=== PATIENT | female | born 1970 | race Caucasian/White ===

== ENCOUNTER 2023-06-28 09:53 | Emergency (ER) | payer OTHER ==
[~2023-06-28] VITALS: Ht 170.2 cm; Wt 80.3 kg
[2023-06-28] MEDS ORDERED: ONDANSETRON ODT 4 MG TAB.RAPDIS SL ONE (10:30)
[2023-06-28] MEDS ORDERED: KETOROLAC TROMETHAMINE 30 MG INJ IM ONE (10:30)
[2023-06-28] MEDS ORDERED: ONDANSETRON ODT 4 MG TAB.RAPDIS ONE (10:42)
[2023-06-28] MEDS ORDERED: KETOROLAC TROMETHAMINE 30 MG INJ ONE (10:51)
[2023-06-28 11:29] VITALS: BP 107/55; O2SAT 95
== END 2023-06-28 11:27 | disposition home or self-care (01) ==
LOC: ER 09:53
DX: M54.50 Low back pain, unspecified (principal); Z88.8 Allergy status to other drugs, medicaments and biological substances; Z91.048 Other nonmedicinal substance allergy status
CPT/HCPCS: 99283; 96372; J1885; A4663; Q0162

== ENCOUNTER 2024-03-26 03:38 | Emergency (ER) | payer OTHER ==
[~2024-03-26] VITALS: Ht 167.6 cm; Wt 82.2 kg
[2024-03-26] MEDS: FAMOTIDINE. 20 MG/2 ML VIAL IV ONE (04:15)
[2024-03-26] MEDS: ONDANSETRON 4 MG/2 ML VIAL IV ONE ×2 (04:15→07:05)
[2024-03-26] MEDS: IV NORMAL SALINE 1000 ML BAG IV ONE (04:30)
[2024-03-26] MEDS ORDERED: KETOROLAC TROMETHAMINE 15 MG INJ IVP ONE (05:00)
[2024-03-26] MEDS ORDERED: MORPHINE SULFATE 4 MG/1 ML DISP.SYRIN IV ONE (05:00)
[2024-03-26] MEDS ORDERED: KETOROLAC TROMETHAMINE 15 MG INJ ONE (05:04)
[2024-03-26] MEDS: KETOROLAC TROMETHAMINE 15 MG INJ IVP ONE (05:11)
[2024-03-26 05:19] LABS: BASOPHILS % (AUTO) 0.2 % (0.0-2.0); HEMATOCRIT 25.1 % (31.2-41.9); HEMOGLOBIN 8.7 g/dL (10.9-14.3); LYMPHOCYTES # (AUTO) 1.5 K/uL (0.8-4.8); LYMPHOCYTES % (AUTO) 12.9 % (20.5-51.5); MEAN CORPUSCULAR HEMOGLOBIN 29.7 uug (24.7-32.8); MEAN CORPUSCULAR HGB CONC 35 g/dL (32.3-35.6); MEAN CORPUSCULAR VOLUME 85.6 fL (75.5-95.3); MONOCYTES # (AUTO) 0.4 K/uL (0.1-1.30); MONOCYTES % (AUTO) 3.7 % (0.0-11.0); NEUTROPHILS # (AUTO) 9.4 K/uL (1.8-8.9); NEUTROPHILS % (AUTO) 83.2 % (38.5-71.5); PLATELET COUNT (AUTO) 354 K/uL (179-408); RED BLOOD CELL COUNT(AUTO) 2.94 MIL/uL (3.63-4.92); RED CELL DISTRIBUTION WIDTH 15.6 % (12.3-17.7); WHITE BLOOD COUNT (AUTO) 11.3 K/uL (3.8-11.8)
[2024-03-26 05:32] LABS: ALBUMIN 3.5 g/dL (3.4-5.0); BILIRUBIN,DIRECT 0.1 mg/dL (0.0-0.2); BILIRUBIN,TOTAL 0.6 mg/dL (0.2-1.0); CREATININE 1.9 mg/dL (0.6-1.3); POTASSIUM 3.1 mmol/L (3.5-5.1); TOTAL PROTEIN, SERUM 6.3 g/dL (6.4-8.2)
[2024-03-26 05:36] LABS: LACTIC ACID 3.4 mmol/L (0.4-2.0)
[2024-03-26 05:39] LABS: DIFFERENTIAL COMMENT 1
[2024-03-26 05:45] VITALS: O2SAT 99
[2024-03-26] MEDS: IV NORMAL SALINE 500 ML IV ONE (05:45)
[2024-03-26] MEDS: FENTANYL CITRATE 100 MCG/2 ML AMPUL IV ONE ×3 (05:45→17:05)
[2024-03-26] MEDS ORDERED: FENTANYL CITRATE 100 MCG/2 ML AMPUL ONE ×3 (05:49→17:05)
[2024-03-26] MEDS: IV NS 1000 ML 1,000 ML IV ONE (06:10)
[2024-03-26] MEDS ORDERED: [UNRECOGNIZED DRUG - OTHER] PO (06:12)
[2024-03-26] MEDS ORDERED: SUMA100T16 PO (06:12)
[2024-03-26] MEDS ORDERED: VENL150C58 PO (06:12)
[2024-03-26] MEDS ORDERED: MIDO2.5T PO (06:12)
[2024-03-26] MEDS ORDERED: BREX1TAB PO (06:12)
[2024-03-26] MEDS ORDERED: QUET50TA PO (06:12)
[2024-03-26] MEDS ORDERED: MAGN200T5 PO (06:12)
[2024-03-26] MEDS ORDERED: MONT10TA33 PO (06:12)
[2024-03-26] MEDS ORDERED: CYAN100T44 PO (06:12)
[2024-03-26] MEDS ORDERED: FLUT1DIS28 IH (06:12)
[2024-03-26] MEDS ORDERED: GABA-532 PO (06:12)
[2024-03-26] MEDS ORDERED: LEVO88TA5 PO (06:12)
[2024-03-26] MEDS ORDERED: APIX5TAB PO (06:12)
[2024-03-26] MEDS ORDERED: FENO50CA4 PO (06:12)
[2024-03-26] MEDS ORDERED: PROP10TA10 PO (06:12)
[2024-03-26] MEDS: PIPERACILLIN SODIUM/TAZOBACTAM 3.375 G in IV DEXTROSE 5% 50 ML IV ONE (06:15)
[2024-03-26] MEDS ORDERED: PIPERACILLIN/TAZOBACTAM/D5W 50 ML IV ONE (06:24)
[2024-03-26] MEDS ORDERED: POTASSIUM CHLORIDE 50 ML ONE (06:43)
[2024-03-26] MEDS: POTASSIUM CHLORIDE 50 ML IV SCH (06:45)
[2024-03-26] MEDS ORDERED: ONDANSETRON 4 MG/2 ML VIAL ONE (07:03)
[2024-03-26 08:45] LABS: *BILIRUBIN,URIN NEGATIVE (NEGATIVE); *BLOOD, URINE NEGATIVE (NEGATIVE); *CLARITY,URINE CLEAR (CLEAR); *COLOR,URINE YELLOW (YELLOW); *KETONES,URINE NEGATIVE (NEGATIVE); *PROTEIN,URINE NEGATIVE (NEGATIVE); LEUKOCYTE ESTERASE ,URINE TRACE (NEGATIVE); NITRITE, URINE NEGATIVE (NEGATIVE); PH,URINE 6.5 (5.0-8.0); UGLUCOSE NEGATIVE (NEGATIVE)
[2024-03-26 09:29] LABS: BACTERIA,URINE FEW /HPF (NONE SEEN); SQUAMOUS EPITHELIAL CELL,UR FEW /HPF (NONE SEEN)
[2024-03-26] MEDS ORDERED: ACETAMINOPHEN 325 MG TABLET ONE (15:48)
[2024-03-26] MEDS: ACETAMINOPHEN 325 MG TABLET PO ONE (15:49)
== END 2024-03-26 17:19 | disposition short-term general hospital (02) ==
LOC: ER 03:44
DX: R11.2 Nausea with vomiting, unspecified (principal); R10.9 Unspecified abdominal pain; I95.9 Hypotension, unspecified; Z88.8 Allergy status to other drugs, medicaments and biological substances; Z91.048 Other nonmedicinal substance allergy status; Z79.899 Other long term (current) drug therapy
CPT/HCPCS: 99285; 74176; 96365; 96375; 96361 ×2; 96367; 96366; 80076; 80048; 81001; 83690; 85025; 85730; 87040; 84484; 36415; 93005; 96376; 83605 ×2; J3490; J1885; J2405 ×2; J2543; J3480; J3010 ×3; J7040 ×3; A4606; A4663

== ENCOUNTER 2024-09-25 12:30 | Emergency (ER) | payer MEDICARE, OTHER ==
[~2024-09-25] VITALS: Ht 170.2 cm; Wt 88.9 kg
[~2024-09-25 12:30] MED LIST: APIX5TAB PO; BREX1TAB PO; CYAN100T44 PO; FENO50CA4 PO; FLUT1DIS28 IH; GABA-532 PO; LEVO88TA5 PO; MAGN200T5 PO; MIDO2.5T PO; MONT10TA33 PO; PROP10TA10 PO; QUET50TA PO; SUMA100T16 PO; VENL150C58 PO; [UNRECOGNIZED DRUG - OTHER] PO
[2024-09-25] MEDS ORDERED: FENTANYL CITRATE 100 MCG/2 ML AMPUL ONE ×2 (13:03→14:10)
[2024-09-25] MEDS ORDERED: ONDANSETRON 4 MG/2 ML VIAL ONE (13:03)
[2024-09-25] MEDS: IV NORMAL SALINE 1000 ML BAG IV ONE (13:15)
[2024-09-25] MEDS: FENTANYL CITRATE 100 MCG/2 ML AMPUL IV ONE ×2 (13:16→14:20)
[2024-09-25] MEDS: ONDANSETRON 4 MG/2 ML VIAL IV ONE (13:16)
[2024-09-25 13:30] LABS: BASOPHILS # (AUTO) 0.1 K/UL (0.0-0.2); BASOPHILS % (AUTO) 1.8 % (0.0-2.0); EOSINOPHILS # (AUTO) 0.2 K/uL (0.0-0.7); HEMATOCRIT 35.7 % (31.2-41.9); HEMOGLOBIN 11.9 g/dL (10.9-14.3); LYMPHOCYTES # (AUTO) 1.9 K/uL (0.8-4.8); LYMPHOCYTES % (AUTO) 33.4 % (20.5-51.5); MEAN CORPUSCULAR HEMOGLOBIN 30.3 uug (24.7-32.8); MEAN CORPUSCULAR HGB CONC 33 g/dL (32.3-35.6); MEAN CORPUSCULAR VOLUME 91.4 fL (75.5-95.3); MONOCYTES # (AUTO) 0.6 K/uL (0.1-1.30); MONOCYTES % (AUTO) 9.6 % (0.0-11.0); NEUTROPHILS % (AUTO) 52.2 % (38.5-71.5); PLATELET COUNT (AUTO) 381 K/uL (179-408); RED BLOOD CELL COUNT(AUTO) 3.91 MIL/uL (3.63-4.92); WHITE BLOOD COUNT (AUTO) 5.7 K/uL (3.8-11.8)
[2024-09-25 13:31] LABS: DIFFERENTIAL COMMENT 1
[2024-09-25 13:39] LABS: CALCIUM 9.4 mg/dL (8.5-10.1); CARBON DIOXIDE 25 mmol/L (21-32); CHLORIDE 103 mmol/L (98-107); CREATININE 1.2 mg/dL (0.6-1.3); GLUCOSE 105 mg/dL (74-106); POTASSIUM 3.9 mmol/L (3.5-5.1); SODIUM SERUM 142 mmol/L (136-145); UREA NITROGEN, BLOOD 28 mg/dL (7-18)
[2024-09-25 13:44] LABS: ALANINE AMINOTRANSFERASE 30 U/L (14-59); ALBUMIN 3.9 g/dL (3.4-5.0); ALKALINE PHOSPHATASE 58 U/L (50-136); ASPARTATE AMINOTRANSFERASE 12 U/L (15-37); BILIRUBIN,DIRECT < 0.1 mg/dL (0.0-0.2); BILIRUBIN,TOTAL 0.3 mg/dL (0.2-1.0); TOTAL PROTEIN, SERUM 7.1 g/dL (6.4-8.2)
[2024-09-25] MEDS ORDERED: ONDA4TAB5 PO (14:04)
[2024-09-25] MEDS ORDERED: OXYC-133 PO (14:04)
[2024-09-25 14:52] VITALS: BP 103/67; TEMP 97.5; O2SAT 95
== END 2024-09-25 14:52 | disposition home or self-care (01) ==
LOC: ER 12:30
DX: M79.622 Pain in left upper arm (principal); M79.7 Fibromyalgia; Z86.718 Personal history of other venous thrombosis and embolism; Z79.899 Other long term (current) drug therapy; Z79.890 Hormone replacement therapy; Z79.51 Long term (current) use of inhaled steroids; Z79.01 Long term (current) use of anticoagulants; Z88.7 Allergy status to serum and vaccine
CPT/HCPCS: 36415; 84484; 85025; 85730; A4606; A4663; J2405; J3010; J7040

== ENCOUNTER 2024-10-28 17:05 | Emergency (ER) | payer MEDICARE, OTHER ==
[~2024-10-28] VITALS: Ht 167.6 cm; Wt 72.6 kg
[~2024-10-28 17:05] MED LIST changes: +ONDA4TAB5 PO; +OXYC-133 PO
[2024-10-28] MEDS ORDERED: KETAMINE HCL 500 MG/10 ML INJ IV ONE (18:00)
[2024-10-28] MEDS ORDERED: MORPHINE SULFATE 2 MG/1 ML DISP.SYRIN ONE ×2 (18:00→18:56)
[2024-10-28] MEDS ORDERED: MORPHINE SULFATE 4 MG/1 ML DISP.SYRIN ONE ×2 (18:00→18:56)
[2024-10-28] MEDS ORDERED: PANTOPRAZOLE SODIUM 40 MG VIAL ONE (18:02)
[2024-10-28] MEDS ORDERED: METOCLOPRAMIDE HCL 10 MG/2 ML VIAL ONE (18:02)
[2024-10-28 18:04] LABS: BASOPHILS # (AUTO) 0.1 K/UL (0.0-0.2); BASOPHILS % (AUTO) 0.9 % (0.0-2.0); EOSINOPHILS # (AUTO) 0.4 K/uL (0.0-0.7); EOSINOPHILS % (AUTO) 4.4 % (0.0-7.0); HEMATOCRIT 37.1 % (31.2-41.9); HEMOGLOBIN 12.2 g/dL (10.9-14.3); LYMPHOCYTES # (AUTO) 1.8 K/uL (0.8-4.8); LYMPHOCYTES % (AUTO) 21.1 % (20.5-51.5); MEAN CORPUSCULAR HEMOGLOBIN 28.8 uug (24.7-32.8); MEAN CORPUSCULAR HGB CONC 33 g/dL (32.3-35.6); MEAN CORPUSCULAR VOLUME 87.7 fL (75.5-95.3); MONOCYTES # (AUTO) 0.6 K/uL (0.1-1.30); MONOCYTES % (AUTO) 7.8 % (0.0-11.0); NEUTROPHILS # (AUTO) 5.5 K/uL (1.8-8.9); NEUTROPHILS % (AUTO) 65.8 % (38.5-71.5); PLATELET COUNT (AUTO) 483 K/uL (179-408); RED BLOOD CELL COUNT(AUTO) 4.23 MIL/uL (3.63-4.92); RED CELL DISTRIBUTION WIDTH 13.9 % (12.3-17.7); WHITE BLOOD COUNT (AUTO) 8.3 K/uL (3.8-11.8)
[2024-10-28 18:05] LABS: DIFFERENTIAL COMMENT 1
[2024-10-28 18:10] LABS: CALCIUM 9.1 mg/dL (8.5-10.1); CARBON DIOXIDE 31 mmol/L (21-32); CHLORIDE 105 mmol/L (98-107); CREATININE 1.5 mg/dL (0.6-1.3); GLUCOSE 111 mg/dL (74-106); POTASSIUM 3.5 mmol/L (3.5-5.1); SODIUM SERUM 135 mmol/L (136-145); UREA NITROGEN, BLOOD 20 mg/dL (7-18)
[2024-10-28] MEDS: MORPHINE SULFATE 4 MG/1 ML DISP.SYRIN IV ONE ×2 (18:12→19:01)
[2024-10-28] MEDS: PANTOPRAZOLE SODIUM IV 40 MG in IV DEXTROSE 5% 100 ML IV ONE (18:12)
[2024-10-28] MEDS: METOCLOPRAMIDE HCL 10 MG/2 ML VIAL IV ONE (18:12)
[2024-10-28] MEDS ORDERED: HYDR-3980 PO (18:51)
[2024-10-28 20:44] VITALS: BP 122/77; TEMP 98.1; O2SAT 99
== END 2024-10-28 20:45 | disposition home or self-care (01) ==
LOC: ER 17:06
DX: R07.89 Other chest pain (principal); R06.00 Dyspnea, unspecified; M79.7 Fibromyalgia; Z79.01 Long term (current) use of anticoagulants; Z79.51 Long term (current) use of inhaled steroids; Z79.890 Hormone replacement therapy; Z79.899 Other long term (current) drug therapy; Z88.7 Allergy status to serum and vaccine
CPT/HCPCS: 99285; 96365; 96375; 71045; 80048; 85025; 84484; 36415; 93005; 96376; J3490; J2765; J2470 ×2; J2270 ×4

== ENCOUNTER 2025-03-08 11:08 | Inpatient (IN) | payer MEDICARE, OTHER ==
[~2025-03-08] VITALS: Ht 170.2 cm; Wt 82.1 kg
[~2025-03-08 11:08] MED LIST changes: +HYDR-3980 PO
[2025-03-08] MEDS ORDERED: LIDOCAINE 1%-EPI 1:100,000 20 ML VIAL ONE (11:48)
[2025-03-08] MEDS: LIDOCAINE 2%-EPI 1:100,000 20 ML VIAL IJ ONE (11:58)
[2025-03-08] MEDS: IV NORMAL SALINE 1000 ML BAG IV ONE ×2 (12:05→14:03)
[2025-03-08] MEDS ORDERED: METOCLOPRAMIDE HCL 10 MG/2 ML VIAL ONE (12:08)
[2025-03-08 12:09] LABS: BASOPHILS # (AUTO) 0.1 K/UL (0.0-0.2); BASOPHILS % (AUTO) 0.9 % (0.0-2.0); EOSINOPHILS # (AUTO) 0.1 K/uL (0.0-0.7); EOSINOPHILS % (AUTO) 1.3 % (0.0-7.0); LYMPHOCYTES # (AUTO) 1.4 K/uL (0.8-4.8); LYMPHOCYTES % (AUTO) 22.9 % (20.5-51.5); MEAN CORPUSCULAR HEMOGLOBIN 28.5 uug (24.7-32.8); MEAN CORPUSCULAR HGB CONC 32 g/dL (32.3-35.6); MEAN CORPUSCULAR VOLUME 88.2 fL (75.5-95.3); MONOCYTES # (AUTO) 0.4 K/uL (0.1-1.30); MONOCYTES % (AUTO) 6.6 % (0.0-11.0); NEUTROPHILS # (AUTO) 4.2 K/uL (1.8-8.9); NEUTROPHILS % (AUTO) 68.3 % (38.5-71.5); PLATELET COUNT (AUTO) 280 K/uL (179-408); WHITE BLOOD COUNT (AUTO) 6.1 K/uL (3.8-11.8)
[2025-03-08] MEDS ORDERED: diphenhydrAMINE 50 MG/1 ML VIAL ONE (12:09)
[2025-03-08 12:10] LABS: DIFFERENTIAL COMMENT 1; HEMOGLOBIN 7.4 g/dL (10.9-14.3)
[2025-03-08] MEDS: METOCLOPRAMIDE HCL 10 MG/2 ML VIAL IV ONE (12:13)
[2025-03-08] MEDS: diphenhydrAMINE 50 MG/1 ML VIAL IV ONE (12:13)
[2025-03-08 12:16] LABS: CALCIUM 8.5 mg/dL (8.5-10.1); CREATININE 1.2 mg/dL (0.6-1.3); POTASSIUM 4.1 mmol/L (3.5-5.1)
[2025-03-08 12:21] LABS: BILIRUBIN,DIRECT 0.1 mg/dL (0.0-0.2); BILIRUBIN,TOTAL 0.2 mg/dL (0.2-1.0)
[2025-03-08 12:22] LABS: ALBUMIN 2.8 g/dL (3.4-5.0); TOTAL PROTEIN, SERUM 5.4 g/dL (6.4-8.2)
[2025-03-08] MEDS ORDERED: MORPHINE SULFATE 2 MG/1 ML DISP.SYRIN ONE ×2 (12:28→12:38)
[2025-03-08] MEDS: MORPHINE SULFATE 2 MG/1 ML DISP.SYRIN IV ONE ×2 (12:32→12:41)
[2025-03-08] MEDS ORDERED: IV NORMAL SALINE 250 ML IV ONE (13:08)
[2025-03-08] MEDS ORDERED: IOHEXOL 300MG/ML 100 ML INFUS..BTL ONE (13:08)
[2025-03-08] MEDS ORDERED: SWABABLE VALVE TRANSFER SET EA MC ONE (13:08)
[2025-03-08] MEDS ORDERED: MORPHINE SULFATE 4 MG/1 ML DISP.SYRIN ONE (13:55)
[2025-03-08] MEDS: MORPHINE SULFATE 4 MG/1 ML DISP.SYRIN IV ONE (14:03)
[2025-03-08 14:24] LABS: *BILIRUBIN,URIN NEGATIVE (NEGATIVE); *BLOOD, URINE NEGATIVE (NEGATIVE); *CLARITY,URINE CLEAR (CLEAR); *COLOR,URINE YELLOW (YELLOW); *KETONES,URINE NEGATIVE (NEGATIVE); *PROTEIN,URINE NEGATIVE (NEGATIVE); *UROBILINOGEN,URINE 0.2 E.U./dl (NORMAL); LEUKOCYTE ESTERASE ,URINE NEGATIVE (NEGATIVE); NITRITE, URINE NEGATIVE (NEGATIVE); PH,URINE 7.5 (5.0-8.0); UGLUCOSE NEGATIVE (NEGATIVE)
[2025-03-08 14:27] LABS: *URINE HCG, QUAL NEGATIVE (NEGATIVE)
[2025-03-08 16:26] VITALS: TEMP 98.7
[2025-03-08] MEDS ORDERED: MIDODRINE HCL 2.5 MG TABLET PO SCH (17:45)
[2025-03-08] MEDS ORDERED: BUME1TAB8 PO (18:10)
[2025-03-08] MEDS ORDERED: DICY10CA21 PO (18:11)
[2025-03-08] MEDS ORDERED: DIAZ5TAB4 PO (18:11)
[2025-03-08] MEDS ORDERED: FENO200C PO (18:12)
[2025-03-08] MEDS ORDERED: FOLI1TAB27 PO (18:13)
[2025-03-08] MEDS ORDERED: FLUT16SP BNOSTRILS (18:13)
[2025-03-08] MEDS ORDERED: HYDR100C2 PO (18:15)
[2025-03-08] MEDS ORDERED: METH-806 PO (18:16)
[2025-03-08] MEDS ORDERED: MIRT45TA83 PO (18:16)
[2025-03-08] MEDS ORDERED: PANT40TA49 PO (18:17)
[2025-03-08] MEDS ORDERED: QUET50TA24 PO (18:19)
[2025-03-08] MEDS ORDERED: BREX1TAB PO (18:23)
[2025-03-08] MEDS ORDERED: UBRO50TA PO (18:25)
[2025-03-08] MEDS ORDERED: FERR-68 PO (18:26)
[2025-03-08] MEDS ORDERED: METO10TA3 PO (18:29)
[2025-03-08] MEDS ORDERED: ONDA-104 PO (18:29)
[2025-03-08] MEDS ORDERED: SUCR1TAB PO (18:30)
[2025-03-08] MEDS ORDERED: ICOS0.5C PO (18:30)
[2025-03-08] MEDS ORDERED: LINA145C PO (18:31)
[2025-03-08] MEDS ORDERED: ALBU2.5V38 NEB (18:31)
[2025-03-08] MEDS ORDERED: RIME75TA PO (18:32)
[2025-03-08] MEDS: MIDODRINE HCL 2.5 MG TABLET PO SCH (18:40)
[2025-03-08 20:00] VITALS: BP 94/50; TEMP 98.6; O2SAT 97
[2025-03-08] MEDS: GABAPENTIN 100 MG CAPSULE PO SCH (20:01)
[2025-03-08] MEDS: MONTELUKAST SODIUM 10 MG TABLET PO SCH (20:49)
[2025-03-08] MEDS: QUETIAPINE FUMARATE 25 MG TABLET PO SCH (20:50)
[2025-03-08] MEDS: MORPHINE SULFATE 2 MG/1 ML DISP.SYRIN IV PRN (21:33)
[2025-03-08] MEDS: ONDANSETRON 4 MG/2 ML VIAL IV PRN (21:33)
[2025-03-08] MEDS: DIAZEPAM 5 MG TABLET PO PRN (23:39)
[2025-03-09] VITALS (50 sets, daily range): BP systolic 48–124; BP diastolic 33–73; TEMP 97.2–98.9; O2SAT 90–100
[2025-03-09 06:51] LABS: BASOPHILS % (AUTO) 0.8 % (0.0-2.0); EOSINOPHILS # (AUTO) 0.1 K/uL (0.0-0.7); EOSINOPHILS % (AUTO) 2.9 % (0.0-7.0); LYMPHOCYTES # (AUTO) 1.5 K/uL (0.8-4.8); LYMPHOCYTES % (AUTO) 36.3 % (20.5-51.5); MEAN CORPUSCULAR HEMOGLOBIN 29.1 uug (24.7-32.8); MEAN CORPUSCULAR HGB CONC 33 g/dL (32.3-35.6); MEAN CORPUSCULAR VOLUME 88.9 fL (75.5-95.3); MONOCYTES # (AUTO) 0.3 K/uL (0.1-1.30); MONOCYTES % (AUTO) 6.9 % (0.0-11.0); NEUTROPHILS # (AUTO) 2.2 K/uL (1.8-8.9); NEUTROPHILS % (AUTO) 53.1 % (38.5-71.5); PLATELET COUNT (AUTO) 213 K/uL (179-408); RED CELL DISTRIBUTION WIDTH 14.3 % (12.3-17.7); WHITE BLOOD COUNT (AUTO) 4.1 K/uL (3.8-11.8)
[2025-03-09 07:15] LABS: RED BLOOD CELL COUNT(AUTO) 1.99 MIL/uL (3.63-4.92)
[2025-03-09 07:16] LABS: ALBUMIN 2.4 g/dL (3.4-5.0); BILIRUBIN,TOTAL 0.1 mg/dL (0.2-1.0); CALCIUM 7.9 mg/dL (8.5-10.1); CREATININE 1.2 mg/dL (0.6-1.3); PHOSPHOROUS 3.3 mg/dL (2.5-4.9); POTASSIUM 4.3 mmol/L (3.5-5.1); TOTAL PROTEIN, SERUM 4.6 g/dL (6.4-8.2)
[2025-03-09 07:17] LABS: HEMOGLOBIN 5.8 g/dL (10.9-14.3)
[2025-03-09 07:18] LABS: DIFFERENTIAL COMMENT 1; HEMATOCRIT 17.7 % (31.2-41.9)
[2025-03-09 07:22] LABS: THYROID STIMULATING HORMONE 6.412 mIU/mL (0.358-3.740)
[2025-03-09] MEDS: LEVOTHYROXINE SODIUM 88 MCG TABLET PO SCH (09:00)
[2025-03-09] MEDS: CYANOCOBALAMIN 1,000 MCG TABLET PO SCH (09:00)
[2025-03-09] MEDS ORDERED: APIXABAN 5 MG TABLET PO SCH (09:00)
[2025-03-09] MEDS ORDERED: FLUTICASONE/SALMETEROL 250/50 INHALER IH SCH (09:00)
[2025-03-09] MEDS: VENLAFAXINE XR 75 MG TAB.ER.24H PO SCH (09:00)
[2025-03-09] MEDS: GABAPENTIN 300 MG CAPSULE PO SCH (09:00)
[2025-03-09] MEDS: FLUTICASONE/VILANTEROL 1 EACH BLST.W.DEV INH SCH (09:17)
[2025-03-09 09:35] LABS: EOSINOPHILS % (MANUAL) 4 % (0-8); LYMPHOCYTES % (MANUAL) 36 % (20-40); MONOCYTES % (MANUAL) 7 % (2-10); NEUTROPHILS % (MANUAL) 53 % (42-75)
[2025-03-09 09:36] LABS: PLATELET ESTIMATE ADEQUATE
[2025-03-09] MEDS: SUMATRIPTAN SUCCINATE 6 MG/0.5 ML VIAL SQ ONE (11:50)
[2025-03-09] MEDS: IV NORMAL SALINE 500 ML IV ONE (11:50)
[2025-03-09] MEDS: NOREPINEPHRINE 8MG/NS 250ML 250 ML IV PRN (14:29)
[2025-03-09] MEDS ORDERED: PROPOFOL 200 MG/20 ML BOTTLE ONE (15:13)
[2025-03-09 16:15] LABS: BASOPHILS # (AUTO) 0.1 K/UL (0.0-0.2); BASOPHILS % (AUTO) 0.8 % (0.0-2.0); EOSINOPHILS # (AUTO) 0.1 K/uL (0.0-0.7); EOSINOPHILS % (AUTO) 0.9 % (0.0-7.0); HEMOGLOBIN 8.7 g/dL (10.9-14.3); LYMPHOCYTES # (AUTO) 1.4 K/uL (0.8-4.8); LYMPHOCYTES % (AUTO) 20.2 % (20.5-51.5); MEAN CORPUSCULAR HEMOGLOBIN 28.4 uug (24.7-32.8); MEAN CORPUSCULAR HGB CONC 32 g/dL (32.3-35.6); MEAN CORPUSCULAR VOLUME 88.6 fL (75.5-95.3); MONOCYTES # (AUTO) 0.5 K/uL (0.1-1.30); MONOCYTES % (AUTO) 6.6 % (0.0-11.0); NEUTROPHILS % (AUTO) 71.5 % (38.5-71.5); PLATELET COUNT (AUTO) 222 K/uL (179-408); RED BLOOD CELL COUNT(AUTO) 3.05 MIL/uL (3.63-4.92); RED CELL DISTRIBUTION WIDTH 15.6 % (12.3-17.7)
[2025-03-09 16:23] LABS: DIFFERENTIAL COMMENT 1
[2025-03-09] MEDS: IV D5/ 0.9% NACL 1,000 ML IV PRN (19:05)
[2025-03-09] MEDS: PANTOPRAZOLE SODIUM 40 MG VIAL IV SCH (20:18)
[2025-03-10] VITALS (44 sets, daily range): BP systolic 75–114; BP diastolic 32–70; TEMP 97.6–99; O2SAT 94–99
[2025-03-10 05:02] LABS: BASOPHILS % (AUTO) 0.6 % (0.0-2.0); EOSINOPHILS # (AUTO) 0.1 K/uL (0.0-0.7); EOSINOPHILS % (AUTO) 1.8 % (0.0-7.0); HEMATOCRIT 23.7 % (31.2-41.9); HEMOGLOBIN 8.1 g/dL (10.9-14.3); LYMPHOCYTES # (AUTO) 1.5 K/uL (0.8-4.8); LYMPHOCYTES % (AUTO) 21.2 % (20.5-51.5); MEAN CORPUSCULAR HEMOGLOBIN 29.2 uug (24.7-32.8); MEAN CORPUSCULAR HGB CONC 34 g/dL (32.3-35.6); MEAN CORPUSCULAR VOLUME 85.2 fL (75.5-95.3); MONOCYTES # (AUTO) 0.5 K/uL (0.1-1.30); MONOCYTES % (AUTO) 7.1 % (0.0-11.0); NEUTROPHILS % (AUTO) 69.3 % (38.5-71.5); PLATELET COUNT (AUTO) 220 K/uL (179-408); RED BLOOD CELL COUNT(AUTO) 2.78 MIL/uL (3.63-4.92); RED CELL DISTRIBUTION WIDTH 15.6 % (12.3-17.7); WHITE BLOOD COUNT (AUTO) 7.3 K/uL (3.8-11.8)
[2025-03-10 05:19] LABS: ALBUMIN 2.4 g/dL (3.4-5.0); BILIRUBIN,TOTAL 0.3 mg/dL (0.2-1.0); CALCIUM 7.7 mg/dL (8.5-10.1); CREATININE 0.8 mg/dL (0.6-1.3); MAGNESIUM 1.7 mg/dL (1.8-2.4); PHOSPHOROUS 3.3 mg/dL (2.5-4.9); POTASSIUM 3.6 mmol/L (3.5-5.1); TOTAL PROTEIN, SERUM 4.7 g/dL (6.4-8.2)
[2025-03-10 05:23] LABS: DIFFERENTIAL COMMENT 1
[2025-03-10] MEDS: LEVOTHYROXINE SODIUM 88 MCG TABLET PO SCH (10:37)
[2025-03-10] MEDS: GOLYTELY 4000 ML BOTTLE PO ONE (13:42)
[2025-03-10] MEDS ORDERED: QUET50TA PO (13:50)
[2025-03-10 14:17] LABS: *OCCULT BLOOD STOOL POSITIVE (NEGATIVE)
[2025-03-10] MEDS: MAGNESIUM OXIDE 400 MG TABLET PO ONE (15:56)
[2025-03-11] VITALS (10 sets, daily range): BP systolic 94–126; BP diastolic 49–88; TEMP 97.4–98.6; O2SAT 93–100
[2025-03-11 04:58] LABS: BASOPHILS % (AUTO) 0.5 % (0.0-2.0); MEAN CORPUSCULAR HEMOGLOBIN 29.9 uug (24.7-32.8); MEAN CORPUSCULAR HGB CONC 35 g/dL (32.3-35.6); MEAN CORPUSCULAR VOLUME 85.3 fL (75.5-95.3); MONOCYTES # (AUTO) 0.3 K/uL (0.1-1.30); MONOCYTES % (AUTO) 7.2 % (0.0-11.0); NEUTROPHILS # (AUTO) 3.4 K/uL (1.8-8.9); NEUTROPHILS % (AUTO) 70.3 % (38.5-71.5); PLATELET COUNT (AUTO) 113 K/uL (179-408); RED CELL DISTRIBUTION WIDTH 14.8 % (12.3-17.7); WHITE BLOOD COUNT (AUTO) 4.9 K/uL (3.8-11.8)
[2025-03-11 05:07] LABS: CALCIUM 7.6 mg/dL (8.5-10.1); CREATININE 0.8 mg/dL (0.6-1.3); DIFFERENTIAL COMMENT 1; MAGNESIUM 1.5 mg/dL (1.8-2.4); PHOSPHOROUS 3.2 mg/dL (2.5-4.9); POTASSIUM 3.3 mmol/L (3.5-5.1); RED BLOOD CELL COUNT(AUTO) 2.44 MIL/uL (3.63-4.92)
[2025-03-11 05:08] LABS: HEMATOCRIT 20.8 % (31.2-41.9); HEMOGLOBIN 7.3 g/dL (10.9-14.3)
[2025-03-11] MEDS ORDERED: POTASSIUM CHLORIDE 20 MEQ POWDER PACKET PO ONE (09:45)
[2025-03-11] MEDS: MAGNESIUM SULFATE/D5W 100 ML IV SCH (10:28)
[2025-03-11] MEDS: POTASSIUM CHLORIDE 50 ML IV SCH (11:23)
[2025-03-11] MEDS: SUMATRIPTAN SUCCINATE 6 MG/0.5 ML VIAL SQ ONE (12:32)
[2025-03-11] MEDS ORDERED: PROPOFOL 200 MG/20 ML BOTTLE ONE (20:00)
[2025-03-12 00:20] VITALS: BP 112/62; TEMP 98.1
[2025-03-12 00:42] VITALS: BP 103/49; TEMP 98; O2SAT 97
[2025-03-12 05:24] VITALS: BP 95/55; TEMP 98.1; O2SAT 94
[2025-03-12 07:15] LABS: BASOPHILS % (AUTO) 0.5 % (0.0-2.0); EOSINOPHILS # (AUTO) 0.2 K/uL (0.0-0.7); EOSINOPHILS % (AUTO) 3.8 % (0.0-7.0); HEMATOCRIT 24.7 % (31.2-41.9); HEMOGLOBIN 8.6 g/dL (10.9-14.3); LYMPHOCYTES # (AUTO) 1.2 K/uL (0.8-4.8); LYMPHOCYTES % (AUTO) 27.7 % (20.5-51.5); MEAN CORPUSCULAR HEMOGLOBIN 30.2 uug (24.7-32.8); MEAN CORPUSCULAR HGB CONC 35 g/dL (32.3-35.6); MEAN CORPUSCULAR VOLUME 86.4 fL (75.5-95.3); MONOCYTES # (AUTO) 0.4 K/uL (0.1-1.30); MONOCYTES % (AUTO) 9.7 % (0.0-11.0); NEUTROPHILS # (AUTO) 2.5 K/uL (1.8-8.9); NEUTROPHILS % (AUTO) 58.3 % (38.5-71.5); PLATELET COUNT (AUTO) 224 K/uL (179-408); RED BLOOD CELL COUNT(AUTO) 2.86 MIL/uL (3.63-4.92); RED CELL DISTRIBUTION WIDTH 14.9 % (12.3-17.7); WHITE BLOOD COUNT (AUTO) 4.2 K/uL (3.8-11.8)
[2025-03-12 07:24] LABS: CALCIUM 7.7 mg/dL (8.5-10.1); CREATININE 0.7 mg/dL (0.6-1.3); MAGNESIUM 1.9 mg/dL (1.8-2.4); PHOSPHOROUS 3.2 mg/dL (2.5-4.9); POTASSIUM 3.3 mmol/L (3.5-5.1)
[2025-03-12 07:35] LABS: DIFFERENTIAL COMMENT 1
[2025-03-12 07:49] VITALS: BP 107/68; TEMP 98.3; O2SAT 98
[2025-03-12 11:04] VITALS: BP 124/73; TEMP 98.4; O2SAT 96
[2025-03-12] MEDS: POTASSIUM CHLORIDE 20 MEQ TAB.PRT.SR PO ONE (12:52)
[2025-03-12] MEDS ORDERED: PANT40TA2 PO (13:54)
[2025-03-12 15:19] VITALS: BP 116/65; TEMP 98.4; O2SAT 94
== END 2025-03-12 15:30 | disposition home health service (06) | DRG 377 ==
LOC: ER 11:11 → TELE3 15:28 → CCU 03-09 10:55 → TELE3 03-11 07:24 → MEDSURG3 03-12 08:32
PROVIDERS: ADMIT Internal Medicine; ATTEND Internal Medicine
PROC: 30243N1 Transfusion of Nonautologous Red Blood Cells into Central Vein, Percutaneous Approach (ICD-10-PCS; 2025-03-09)
PROC: 0DB68ZX Excision of Stomach, Via Natural or Artificial Opening Endoscopic, Diagnostic (ICD-10-PCS; principal; 2025-03-09 15:00)
PROC: 0DJD8ZZ Inspection of Lower Intestinal Tract, Via Natural or Artificial Opening Endoscopic (ICD-10-PCS; 2025-03-11)
DX: K55.21 Angiodysplasia of colon with hemorrhage (principal); D62 Acute posthemorrhagic anemia; R57.1 Hypovolemic shock; D68.59 Other primary thrombophilia; E86.0 Dehydration; R10.9 Unspecified abdominal pain; K31.84 Gastroparesis; D69.6 Thrombocytopenia, unspecified; Z74.09 Other reduced mobility; Z90.710 Acquired absence of both cervix and uterus; K29.70 Gastritis, unspecified, without bleeding; Z87.11 Personal history of peptic ulcer disease; Z90.3 Acquired absence of stomach [part of]; M79.7 Fibromyalgia; E03.9 Hypothyroidism, unspecified; E78.5 Hyperlipidemia, unspecified; J45.909 Unspecified asthma, uncomplicated; I48.91 Unspecified atrial fibrillation; K64.8 Other hemorrhoids; I73.9 Peripheral vascular disease, unspecified; Z68.28 Body mass index [BMI] 28.0-28.9, adult; E66.9 Obesity, unspecified; G43.909 Migraine, unspecified, not intractable, without status migrainosus; G89.4 Chronic pain syndrome; F32.A Depression, unspecified; Z88.8 Allergy status to other drugs, medicaments and biological substances; Z88.9 Allergy status to unspecified drugs, medicaments and biological substances; Z79.890 Hormone replacement therapy; Z79.899 Other long term (current) drug therapy; I50.9 Heart failure, unspecified; I11.0 Hypertensive heart disease with heart failure; I95.1 Orthostatic hypotension; G62.9 Polyneuropathy, unspecified; M15.9 Polyosteoarthritis, unspecified; Z79.01 Long term (current) use of anticoagulants
CPT/HCPCS: 36415; 82378; 83550; 83605; 83690; 83735; 84100; 84443; 84484; 84703; 85025; 85610; 86850; 86900; 86901; 86920; 87040; 87077; 88312-TC; 88313-TC; 93005; A4663; G0378; J1200; J2270; J2405; J2470; J2765; J3030; J3475; J3480; J3490; J7040; J7042; P9016; Q9967